=== PATIENT | female | born 1960 | race Caucasian/White ===

== ENCOUNTER → 2019-12-22 12:49 | Outpatient (CLI) | payer MEDICAID, SELFPAY ==
--- NOTE | 2019-12-22 12:57 | US_ITS ---
APPROVED REPORT Exam Type: Lower Extremity Segmental Pressures Major Donor Coordinator: Lesvia George RVT Indications Claudication: Right Rest Pain: Right Current Smoker Risk Factors Hypertension TIA/CVA History Current Smoker Pressures/Indices Right Indices Left Indices Brachial 158.00 mmHg Brachial 166.00 mmHg Low Thigh 158.00 mmHg 0.95 Low Thigh 150.00 mmHg 0.90 Calf 80.00 mmHg 0.48 Calf 136.00 mmHg 0.82 Ankle(PT) 84.00 mmHg 0.51 Ankle(PT) 138.00 mmHg 0.83 Ankle(DP) 85.00 mmHg 0.51 Ankle(DP) 135.00 mmHg 0.81 Digit 31.00 mmHg 0.19 Digit 96.00 mmHg 0.58 Findings RT RADHIKA:0.51 LT RADHIKA:0.83 RT TBI:0.19 LT TBI:0.58 DAMPENED WAVEFORMS RIGHT CALF AND ANKLE AND LEFT ANKLE. NORMAL PULSES BILATERAL Conclusion RT RADHIKA:0.51 LT RADHIKA:0.83 RT TBI:0.19 LT TBI:0.58 DAMPENED WAVEFORMS RIGHT CALF AND ANKLE AND LEFT ANKLE. NORMAL PULSES BILATERAL MODERATE ARTERIAL DISEASE Critical Notification Physician Notified Date: 12/22/2019 Time: 13:31 Physician Name: Nico Ann Electronically signed by : Maycol Rosario MD 12/22/2019 17:20:23
== END ==
PROVIDERS: PCP Nurse Practitioner; Visit Provider Nurse Practitioner
DX: M79.661 Pain in right lower leg (principal)
CPT/HCPCS: 93923